=== PATIENT | female | born 1965 | race Caucasian/White ===

== ENCOUNTER 2018-01-04 06:32 | Day surgery (SDC) | payer BC, OTHER ==
[2018-01-04] MEDS ORDERED: Lactated Ringers 1,000 ML IV SCH (06:45)
[2018-01-04] MEDS ORDERED: Propofol 200 MG/20 ML SDV IV ONE (08:00)
--- NOTE | 2018-01-04 08:21 | PCM.OPNOTE ---
- General Post-Op/Procedure Note Date of Surgery/Procedure: 01/04/18 Operative Procedure(s): c scope Findings: normal colon Pre Op Diagnosis: colon cancer screening Post-Op Diagnosis: nl study Anesthesia Technique: MAC Primary Surgeon: Celestine Kingston Anesthesia Provider: Ernesto Metzger Pathology: none Complications: None Condition: Good Free Text/Narrative:: see dictation
--- NOTE | 2018-01-04 08:43 | OR ---
DATE OF OPERATION: 01/04/2018 SURGEON: Celestine Kingston MD PROCEDURE PERFORMED: Colonoscopy. PREOPERATIVE DIAGNOSIS: Need for screening C-scope. POSTOPERATIVE DIAGNOSIS: Normal exam. INDICATIONS FOR PROCEDURE: This is a 52-year-old white female who presents for screening colonoscopy. She was offered and accepted same. DESCRIPTION OF OPERATION: After an excellent IV sedation was administered, digital rectal exam was performed. No marked abnormality was noted. The flexible colonoscope was inserted and advanced to the cecum without difficulty. The following findings were noted. Ascending colon, unremarkable. Transverse colon, unremarkable. Descending colon, unremarkable. Sigmoid and rectum unremarkable. Colon was deflated. The scope was removed. The patient tolerated procedure well and was taken to recovery in good condition. Repeat colonoscopy in 10 years. /[id number] PRISCILLA/ROBERTO
== END 2018-01-04 09:25 | disposition home or self-care (01) ==
LOC: FB.SDS 06:32
PROVIDERS: ATTEND Surgery
DX: Z12.11 Encounter for screening for malignant neoplasm of colon (principal); Z80.0 Family history of malignant neoplasm of digestive organs; F33.0 Major depressive disorder, recurrent, mild; Z79.899 Other long term (current) drug therapy
CPT/HCPCS: 45378; J2704; J7120

== ENCOUNTER 2018-03-03 12:48 | Emergency (ER) | payer OTHER ==
[2018-03-03] MEDS ORDERED: Lidocaine 1% 20 ML MDV INFILT ONE (12:49)
--- NOTE | 2018-03-03 16:30 | EDM.PDOC ---
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 Tetanus UTD. Onset: Today Location: Reports: Upper Extremity, Left Severity: Mild - Related Data Allergies Allergy/AdvReac Type Severity Reaction Status Date / Time No Known Allergies Allergy Verified 03/03/18 14:02 Home Meds: Home Meds Clotrimazole/Betamethasone Dip [Lotrisone Cream] 1 applic TOP BID 01/03/18 [ History] Multivitamin [Multiple Vitamins] 1 ea PO DAILY 01/03/18 [History] Sertraline HCl 200 mg PO BEDTIME 01/03/18 [History] Past Medical History HEENT History: Reports: Allergic Rhinitis, Impaired Vision Cardiovascular History: Reports: None Respiratory History: Reports: None Gastrointestinal History: Reports: None Genitourinary History: Reports: None STRATEGIC ALLIANCES MANAGER History: Reports: Musculoskeletal History: Reports: None Neurological History: Reports: None Psychiatric History: Reports: None Endocrine/Metabolic History: Reports: None Hematologic History: Reports: None Immunologic History: Reports: None Oncologic (Cancer) History: Reports: None Dermatologic History: Reports: Other (See Below) Other Dermatologic History: CHRONIC RASH - Past Surgical History Head Surgeries/Procedures: Reports: None Female Surgical History: Reports: Section Social & Family History - Caffeine Use Caffeine Use: Reports: Soda ED ROS GENERAL - Review of Systems Review Of Systems: ROS reveals no pertinent complaints other than HPI. ED EXAM, SKIN/RASH Exam: See Below Exam Limited By: No Limitations General Appearance: Alert, WD/WN, No Apparent Distress Ears: Normal External Exam Nose: Normal Inspection Throat/Mouth: No Airway Compromise Head: Atraumatic, Normocephalic Respiratory/Chest: No Respiratory Distress Peripheral Pulses: 2+: Radial (L) Extremities: Other (1 cm laceration to tip of left index finger. ROM intact) Neurological: No Motor/Sensory Deficits Psychiatric: Normal Affect, Normal Mood ED SKIN PROCEDURES - Laceration/Wound Repair Left Digit - 2nd (Index) Lac/Wound length In cm: 1 Appearance: Subcutaneous Distal NVT: Neuro & Vascular Intact, No Tendon Injury Anesthetic Type: Local Local Anesthesia - Lidocaine (Xylocaine): 1% Plain Local Anesthetic Volume: 2cc Skin Prep: Other (shurclens) Closed with: Sutures Suture Size: 4-0 # of Sutures: 4 Suture Type: Nylon, Interrupted Sterile Dressing Applied: Nurse Tetanus Status Addressed: Yes Complications: No Course - Vital Signs Last Recorded V/S: Last Vital Signs Temp 36.8 C 03/03/18 13:20 Pulse 77 03/03/18 13:20 Resp 18 03/03/18 13:20 BP 164/96 H 03/03/18 13:20 Pulse Ox 99 03/03/18 13:20 Departure - Departure Time of Disposition: 16:42 Disposition: Home, Self-Care 01 Condition: Good Clinical Impression: Laceration of left index finger Qualifiers: Encounter type: initial encounter Damage to nail status: without damage Foreign body presence: without foreign body Qualified Code(s): S61.211A - Laceration without foreign body of left index finger without damage to nail, initial encounter - Discharge Information *PRESCRIPTION DRUG MONITORING PROGRAM REVIEWED*: No *COPY OF PRESCRIPTION DRUG MONITORING REPORT IN PATIENT SHELDON: Not Applicable Instructions: Laceration Care, Adult, Stitches, Alexis, or Adhesive Wound Closure, [id number] Referrals: Bill Berman MD [Primary Care Provider] - Forms: ED Department Discharge Additional Instructions: Suture removal 7 days. Apply Bacitracin daily. Follow up with symptoms or signs of infection.
[2018-03-03] MEDS ORDERED: Bacitracin Oint 1 GM U/D Packet TOP ONE (16:43)
[2018-03-03] MEDS ORDERED: Dexamethasone 4 MG/ML SDV IM ONE (16:47)
[2018-03-03] MEDS ORDERED: diphenhydrAMINE 50 MG/ML SDV IM ONE (16:47)
== END 2018-03-03 16:55 | disposition home or self-care (01) ==
LOC: FB.ED 12:48
DX: S61.211A Laceration without foreign body of left index finger without damage to nail, initial encounter (principal); Z79.899 Other long term (current) drug therapy; W26.0XXA Contact with knife, initial encounter
CPT/HCPCS: 12001; 99282